=== PATIENT | male | born 1940 | race Caucasian/White ===

== ENCOUNTER 2017-09-04 11:34 | Emergency (ER) | payer MEDICARE, OTHER ==
[2017-09-04 11:51] VITALS: BP 147/73
[2017-09-04] MEDS ORDERED: Ibuprofen 600 MG Tab PO ONE (12:13)
--- NOTE | 2017-09-04 12:22 | EDM.PDOC ---
ED HPI GENERAL MEDICAL PROBLEM - General Chief Complaint: Trauma Stated Complaint: HEAD INJURY Time Seen by Provider: 09/04/17 11:47 Source of Information: Reports: Patient, Family () History Limitations: Reports: No Limitations - History of Present Illness INITIAL COMMENTS - FREE TEXT/NARRATIVE: The patient states that he was struck by one of his callus approximately 3 times around 19:00 last night, in a pen in his barn. He states that the cow was calving. He states that he was shoved up against a wall, then fell to the ground. He struck the back of his head, but denies loss of consciousness. He had epistaxis last night. The patient was seen at the [facility] this morning, complaining of bilateral anterior chest pain and left lateral thigh pain. He is also noted to have facial abrasions, and several ecchymoses and abrasions. A portable chest radiograph was done, which was normal, however, the patient was sent here for further evaluation. The patient has a presumptive diagnosis of Parkinson disease and a prior hemorrhagic stroke. No new neurologic abnormalities. The patient states that he took some Tylenol this morning, but no other pain medications. The patient's PCP is Venecia Craft. Right Chest Pain Score (Numeric/FACES): 10 - Related Data Allergies Allergy/AdvReac Type Severity Reaction Status Date / Time bupropion Allergy UNKNOWN Verified 01/30/16 13:49 ciprofloxacin [From Cipro] Allergy Stomach Verified 01/30/16 13:49 Upset Home Meds: Home Meds Omeprazole 20 mg PO BRK 10/17/13 [History] Potassium Chloride 20 meq PO DAILY 10/17/13 [History] Rosuvastatin [Crestor] 20 mg PO BEDTIME 10/17/13 [History] Levothyroxine [Synthroid] 50 mcg PO ACBRK 06/09/14 [History] Nitroglycerin [IJP: Nitroglycerin] 1 tab SL ASDIRECTED PRN 01/22/16 [History] Carbidopa/Levodopa [Carbidopa-Levodopa 10-100] 1 tab PO TID 11/10/16 [History] Cholecalciferol (Vitamin D3) [Vitamin D3] 5,000 units PO MOWEFR 11/10/16 [ History] Lisinopril 20 mg PO BEDTIME 11/10/16 [History] Multivitamin [Multivitamins] 1 tab PO DAILY 11/10/16 [History] Venlafaxine HCl [Venlafaxine HCl ER] 150 mg PO DAILY 11/10/16 [History] Acetaminophen [Tylenol] 325 mg PO Q4H PRN 09/04/17 [History] Acetaminophen [Tylenol] 500 mg PO Q4H PRN 09/04/17 [History] Betamethasone Valerate [Valisone 0.1% Crm] 1 applic PO ASDIRECTED PRN 09/04/17 [ History] Carbidopa/Levodopa [Sinemet CR 50-200] 1 tab PO DAILY 09/04/17 [History] Polyethylene Glycol 3350 [MiraLAX] 17 gram PO BEDTIME 09/04/17 [History] Past Medical History HEENT History: Reports: Glaucoma, Retinal Detachment Cardiovascular History: Reports: CAD, High Cholesterol, Hypertension Gastrointestinal History: Reports: GERD, Hiatal Hernia, Other (See Below) ( Schatzki ring) Genitourinary History: Reports: Renal Calculus Musculoskeletal History: Reports: Arthritis, Back Pain, Chronic Neurological History: Reports: CVA (Hemorrhagic), Parkinson's (Presumptive diagnosis, not confirmed) Psychiatric History: Reports: Anxiety, Depression Endocrine/Metabolic History: Reports: Hypothyroidism Oncologic (Cancer) History: Reports: Prostate Dermatologic History: Reports: Psoriasis - Past Surgical History HEENT Surgical History: Reports: Adenoidectomy, Detached Retina, Tonsillectomy Cardiovascular Surgical History: Reports: Coronary Artery Stent (x 1) GI Surgical History: Reports: EGD Male Surgical History: Reports: Prostatectomy Musculoskeletal Surgical History: Reports: Carpal Tunnel (bilateral), Other ( See Below) (Right tibia monica) Social & Family History - Tobacco Use Smoking Status *Q: Former Smoker Years of Tobacco use: 10 Month/Year Tobacco Last Used: Quit around 1977 Second Hand Smoke Exposure: No - Caffeine Use Caffeine Use: Reports: Coffee - Alcohol Use Alcohol Use History: Yes Days Per Week of Alcohol Use: 0 Number of Drinks Per Day: 0 Total Drinks Per Week: 0 Alcohol Use Frequency: Socially - Recreational Drug Use Recreational Drug Use: No - Living Situation & Occupation Living situation: Reports: , with Spouse Occupation: Employed ([employer]) Review of Systems - Review of Systems Review Of Systems: ROS reveals no pertinent complaints other than HPI. ED EXAM, GENERAL - Physical Exam Exam: See Below Exam Limited By: No Limitations General Appearance: Alert, WD/WN, No Apparent Distress Eye Exam: Bilateral Eye: Normal Inspection Ears: Normal External Exam, Hearing Grossly Normal Nose: Normal Mucosa, No Blood, Nasal Swelling, Other (No septal hematoma. Whitish discoloration at the anterior aspect of both nostrils, on the septum.) Throat/Mouth: Normal Inspection, Normal Lips, Normal Voice, No Airway Compromise Head: Normocephalic, Other (Numerous abrasions to the face. Small bump noted to the right occiput.) Neck: Normal Inspection, Full Range of Motion Respiratory/Chest: No Respiratory Distress, Lungs Clear, Normal Breath Sounds, No Accessory Muscle Use, Other (Tenderness primarily to the right anterior chest. No visible abnormality, such as swelling, erythema, ecchymosis, or abrasion. No rub on auscultation.). No: Decreased Breath Sounds, Crackles, Rhonchi, Wheezing, Pleural Rub, Splinting, Prolonged Expiration Cardiovascular: Normal Peripheral Pulses, Regular Rate, Rhythm, No Edema, No Gallop, No JVD, No Murmur, No Rub Peripheral Pulses: 4+: Radial (L), Radial (R) GI/Abdominal: Normal Bowel Sounds, Soft, Non-Tender, No Organomegaly, No Distention, No Abnormal Bruit, No Mass (Male) Exam: Deferred Rectal (Males) Exam: Deferred Back Exam: Normal Inspection, Full Range of Motion, NT Extremities: Normal Inspection, Normal Range of Motion, No Pedal Edema, Normal Capillary Refill, Other (Ecchymosis noted to the superior aspect of the right scapula/posterior right shoulder. Linear abrasion to the lateral aspect of the distal left thigh, with associated ecchymosis. Abrasion noted to the anterior right knee and anterior left leg.) Neurological: Alert, Oriented, Normal Cognition, No Motor/Sensory Deficits, Other (Masked facied, c/w Parkinson disease. No focal neurologic deficits.) Psychiatric: Normal Affect Skin Exam: Warm, Dry, Intact, Normal Color, No Rash Course - Vital Signs Last Recorded V/S: Last Vital Signs Temp 37.3 C 09/04/17 11:49 Pulse 74 09/04/17 11:49 Resp 20 09/04/17 11:49 BP 147/73 H 09/04/17 11:49 Pulse Ox 98 09/04/17 11:49 - Orders/Labs/Meds Meds: Medications Discontinued Medications Generic Name Dose Route Start Last Admin Trade Name Ambrose PRN Reason Stop Dose Admin Ibuprofen 600 mg 09/04/17 12:13 09/04/17 12:24 Motrin PO 09/04/17 12:14 600 mg ONETIME ONE Administration - Re-Assessments/Exams Free Text/Narrative Re-Assessment/Exam: 09/04/17 12:12 Portable chest radiograph obtained at the [facility] this morning appears to be grossly normal. Cardiac silhouette is within normal limits. No pulmonary vascular congestion. No pleural effusions. No focal infiltrate. No pneumothorax. Formal read per the Radiologist pending. 09/04/17 12:13 Discussion was held with the patient and his regarding a CT scan of the head. I do not find that a CT scan of the head is indicated at this time, for a while the patient struck the back of his head last night, there was no loss of consciousness, he does not complain of headache or visual changes, and there are no focal neurologic deficits. The patient will be given ibuprofen. I believe he can safely be discharged home. Departure - Departure Time of Disposition: 12:13 Disposition: Home, Self-Care 01 Condition: Fair Clinical Impression: Multiple abrasions, Multiple contusions - Discharge Information Referrals: Venecia Craft PA-C [Primary Care Provider] - Eze Clark MD [Ordering Only Provider] - Forms: ED Department Discharge Additional Instructions: You were seen in the emergency room after being struck by a cow last night. The chest x-ray obtained this morning at the [facility] was reviewed. No broken bones, popped lungs, or fluid in the chest was seen. On evaluation, you had multiple abrasions and contusions, but no apparent broken bones. Take [id number] ibuprofen, 2-3 tablets (400-600 mg) every 8 hours, with food, as needed for discomfort. Stay active. On examination of your nose, you have some white discoloration at the front of your nostrils. Follow-up with the Ear, Nose, and Throat Dr. Eze Clark, at the next available appointment, for further evaluation. If any other problems, please do not hesitate to return to the ER.
== END 2017-09-04 13:00 | disposition home or self-care (01) ==
LOC: JD.ED 11:34
DX: S40.011A Contusion of right shoulder, initial encounter (principal); S70.12XA Contusion of left thigh, initial encounter; S80.211A Abrasion, right knee, initial encounter; S80.812A Abrasion, left lower leg, initial encounter; S00.81XA Abrasion of other part of head, initial encounter; I25.10 Atherosclerotic heart disease of native coronary artery without angina pectoris; E78.00 Pure hypercholesterolemia, unspecified; E03.9 Hypothyroidism, unspecified; I10 Essential (primary) hypertension; F41.9 Anxiety disorder, unspecified; F32.9 Major depressive disorder, single episode, unspecified; Z87.442 Personal history of urinary calculi; Z86.73 Personal history of transient ischemic attack (TIA), and cerebral infarction without residual deficits; Z90.49 Acquired absence of other specified parts of digestive tract; Z98.890 Other specified postprocedural states; Z88.1 Allergy status to other antibiotic agents; Z88.8 Allergy status to other drugs, medicaments and biological substances; Z79.899 Other long term (current) drug therapy; W22.01XA Walked into wall, initial encounter; Z87.891 Personal history of nicotine dependence
CPT/HCPCS: 99283; A9270

== ENCOUNTER 2019-02-16 10:58 | Inpatient (IN) | payer MEDICARE, OTHER ==
[2019-02-16] MEDS ORDERED: EPINEPHrine/Lidocaine/Tetracai 3 ML ML TOP ONE (11:50)
[2019-02-16] MEDS ORDERED: Lidocaine 1% with EPINEPHrine 1:100,000 20 ML MDV INJECT ONE (11:51)
--- NOTE | 2019-02-16 11:57 | EDM.PDOC ---
<Anthony Harman - Last Filed: 02/16/19 11:50> ED HPI GENERAL MEDICAL PROBLEM - General Chief Complaint: General Stated Complaint: RIGHT EYE INJURY Time Seen by Provider: 02/16/19 11:11 Source of Information: Reports: Patient, Old Records History Limitations: Reports: No Limitations - History of Present Illness INITIAL COMMENTS - FREE TEXT/NARRATIVE: Pt presents to ED today from [facility] with complaint of falling and a facial laceration. Pt states that he has had multiple falls over the last 4-6 weeks, and has fallen down at least 4 times today, with one fall resulting in a laceration over his left eye. Pt states that he feels dizzy before he falls down , and is able to catch himself with his hands usually. He presented to the [facility] this morning for repair of his laceration, when he became rigid and unresponsive to stimuli for about 15-30 seconds. Pt does not recall this episode. Pt is having no chest pain or shortness of breath. No headache. No other associated symptoms. Pt does have hx of CVA in 2016, from which he states he has no residual deficits. Pt states that he has problems with hypotensive episodes for which he was put on medication. Onset: Today Location: Reports: Face Front/Back Body Image: 1 - Laceration - Related Data Allergies Allergy/AdvReac Type Severity Reaction Status Date / Time bupropion Allergy UNKNOWN Verified 01/30/16 13:49 ciprofloxacin [From Cipro] Allergy Stomach Verified 01/30/16 13:49 Upset Home Meds: Home Meds Omeprazole 20 mg PO BRK 10/17/13 [History] Potassium Chloride 20 meq PO DAILY 10/17/13 [History] Rosuvastatin [Crestor] 20 mg PO BEDTIME 10/17/13 [History] Levothyroxine [Synthroid] 50 mcg PO ACBRK 06/09/14 [History] Nitroglycerin [IJP: Nitroglycerin] 1 tab SL ASDIRECTED PRN 01/22/16 [History] Cholecalciferol (Vitamin D3) [Vitamin D3] 5,000 units PO MOWEFR 11/10/16 [ History] Lisinopril 40 mg PO BEDTIME 11/10/16 [History] Multivitamin [Multivitamins] 1 tab PO DAILY 11/10/16 [History] Venlafaxine HCl [Venlafaxine HCl ER] 150 mg PO DAILY 11/10/16 [History] Acetaminophen [Tylenol] 500 mg PO Q4H PRN 09/04/17 [History] Carbidopa/Levodopa [Sinemet CR 50-200] 1 tab PO DAILY 09/04/17 [History] Polyethylene Glycol 3350 [MiraLAX] 17 gram PO BEDTIME 09/04/17 [History] Aspirin 81 mg PO DAILY 02/16/19 [History] Famotidine 20 mg PO DAILY 02/16/19 [History] Midodrine 5 mg PO TID 02/16/19 [History] Sennosides [Senna] 8.6 mg PO BID 02/16/19 [History] Past Medical History HEENT History: Reports: Glaucoma, Retinal Detachment Cardiovascular History: Reports: CAD, High Cholesterol, Hypertension Other Cardiovascular History: chest pain Respiratory History: Reports: Other (See Below) Other Respiratory History: upper respiratory infection Gastrointestinal History: Reports: GERD, Hiatal Hernia, Other (See Below) Other Gastrointestinal History: schatzcki's ring Genitourinary History: Reports: Renal Calculus Musculoskeletal History: Reports: Arthritis, Back Pain, Chronic Other Musculoskeletal History: shoulder pain Neurological History: Reports: CVA, Parkinson's Other Neuro History: R hand paresthesia Psychiatric History: Reports: Anxiety, Depression Endocrine/Metabolic History: Reports: Hypothyroidism Hematologic History: Reports: Other (See Below) Other Hematologic History: hyperkalemia Immunologic History: Reports: None Oncologic (Cancer) History: Reports: Prostate Dermatologic History: Reports: Psoriasis - Infectious Disease History Infectious Disease History: Reports: None - Past Surgical History Head Surgeries/Procedures: Reports: None HEENT Surgical History: Reports: Adenoidectomy, Detached Retina, Tonsillectomy Cardiovascular Surgical History: Reports: Coronary Artery Stent GI Surgical History: Reports: EGD Male Surgical History: Reports: Prostatectomy Musculoskeletal Surgical History: Reports: Carpal Tunnel, Other (See Below) Social & Family History - Tobacco Use Smoking Status *Q: Former Smoker Used Tobacco, but Quit: Yes Month/Year Tobacco Last Used: 1975 - Caffeine Use Caffeine Use: Reports: Soda - Recreational Drug Use Recreational Drug Use: No - Living Situation & Occupation Living situation: Reports: , with Spouse Occupation: Employed ([employer]) ED ROS GENERAL - Review of Systems Review Of Systems: ROS reveals no pertinent complaints other than HPI. ED EXAM, GENERAL - Physical Exam Exam: See Below Exam Limited By: No Limitations General Appearance: Alert, No Apparent Distress Eye Exam: Bilateral Eye: EOMI, Normal Inspection Ears: Normal External Exam, Hearing Grossly Normal Nose: Normal Inspection, Normal Mucosa, No Blood Throat/Mouth: Normal Inspection Head: Normocephalic, Facial Swelling, Other (3cm laceration superior to left eye ) Neck: Normal Inspection, Supple, Non-Tender Respiratory/Chest: No Respiratory Distress, Lungs Clear, Normal Breath Sounds, No Accessory Muscle Use. No: Crackles, Rales, Rhonchi, Wheezing Cardiovascular: Regular Rate, Rhythm, No Edema, No JVD, No Rub, Systolic Murmur GI/Abdominal: Normal Bowel Sounds, Soft, Non-Tender, No Organomegaly Extremities: Normal Inspection Neurological: Alert, Oriented, Normal Cognition, No Motor/Sensory Deficits Psychiatric: Normal Affect, Normal Mood Skin Exam: Warm, Dry, Intact, Normal Color, No Rash Course - Vital Signs Last Recorded V/S: Last Vital Signs Temp 98.7 F 02/16/19 11:09 Pulse 70 02/16/19 11:09 Resp 16 02/16/19 11:09 BP 155/85 H 02/16/19 11:09 Pulse Ox 94 L 02/16/19 11:09 - Orders/Labs/Meds Orders: Active Orders 24 hr Category Date Time Status Cardiac Monitoring [RC] . DIRECTED Care 02/16/19 11:48 Active EKG Documentation Completion [RC] STAT Care 02/16/19 11:50 Active Peripheral IV Care [RC] . DIRECTED Care 02/16/19 11:49 Active Brain wo Cont [MR] Stat Exams 02/16/19 14:16 Ordered Head wo Cont [CT] Stat Exams 02/16/19 11:50 Taken Sodium Chloride 0.9% [Normal Saline] 1,000 ml Med 02/16/19 12:00 Active IV ASDIRECTED Sodium Chloride 0.9% [Normal Saline] 500 ml Med 02/16/19 14:27 Active IV .BOLUS Sodium Chloride 0.9% [Saline Flush] Med 02/16/19 11:48 Active 10 ml FLUSH ASDIRECTED PRN Peripheral IV Insertion Adult [OM.PC] Stat Oth 02/16/19 11:48 Ordered Medication Orders Sodium Chloride (Normal Saline) 1,000 mls @ 125 mls/hr IV ASDIRECTED THOMPSON Last Admin: 02/16/19 12:14 Dose: 125 mls/hr Sodium Chloride (Normal Saline) 500 mls @ 1,000 mls/hr IV .BOLUS ONE Stop: 02/16/19 14:56 Sodium Chloride (Saline Flush) 10 ml FLUSH ASDIRECTED PRN PRN Reason: Keep Vein Open Last Admin: 02/16/19 13:42 Dose: 10 ml Admin: 02/16/19 12:15 Dose: 10 ml Labs: Laboratory Tests 02/16/19 02/16/19 02/16/19 Range/Units 12:10 12:10 14:10 WBC 12.66 H (4.23-9.07) K/mm3 RBC 4.98 (4.63-6.08) M/mm3 Hgb 15.5 (13.7-17.5) gm/L Hct 45.9 (40.1-51.0) % MCV 92.2 (79.0-92.2) fl MCH 31.1 (25.7-32.2) pg MCHC 33.8 (32.2-35.5) g/dl RDW Std Deviation 41.3 (35.1-43.9) fL Plt Count 229 (163-337) K/mm3 MPV 10.9 (9.4-12.3) fl Neut % (Auto) 81.3 H (34.0-67.9) % Lymph % (Auto) 7.4 L (21.8-53.1) % [place] % (Auto) 10.7 (5.3-12.2) % Eos % (Auto) 0.2 L (0.8-7.0) Baso % (Auto) 0.2 (0.1-1.2) % Neut # (Auto) 10.28 H (1.78-5.38) K/mm3 Lymph # (Auto) 0.94 L (1.32-3.57) K/mm3 [place] # (Auto) 1.36 H (0.30-0.82) K/mm3 Eos # (Auto) 0.03 L (0.04-0.54) K/mm3 Baso # (Auto) 0.03 (0.01-0.08) K/mm3 Manual Slide Review Abnormal smear Sodium 141 (136-145) mEq/L Potassium 4.5 (3.5-5.1) mEq/L Chloride 106 (98-107) mEq/L Carbon Dioxide 27 (21-32) mEq/L Anion Gap 12.5 (5-15) BUN 20 H (7-18) mg/dL Creatinine 1.2 (0.7-1.3) mg/dL Est Cr Clr Drug Dosing 53.23 mL/min Estimated GFR (MDRD) 59 (>60) mL/min BUN/Creatinine Ratio 16.7 (14-18) Glucose 94 (83-115) mg/dL Calcium 9.1 (8.5-10.1) mg/dL Total Bilirubin 0.5 (0.2-1.0) mg/dL AST 28 (15-37) U/L ALT 20 (16-63) U/L Alkaline Phosphatase 99 (46-116) U/L Troponin I < 0.017 (0.00-0.056) ng/mL Total Protein 6.5 (6.4-8.2) g/dl Albumin 3.4 (3.4-5.0) g/dl Globulin 3.1 gm/dL Albumin/Globulin Ratio 1.1 (1-2) Urine Color Yellow (Yellow) Urine Appearance Clear (Clear) Urine pH 5.5 (5.0-8.0) Ur Specific Supply 1.025 (1.005-1.030) Urine Protein Trace H (Negative) Urine Glucose (UA) Negative (Negative) Urine Ketones 2+ H (Negative) Urine Occult Blood Negative (Negative) Urine Nitrite Negative (Negative) Urine Bilirubin 1+ H (Negative) Urine Urobilinogen 0.2 (0.2-1.0) Ur Leukocyte Esterase Negative (Negative) Urine RBC 0-5 (0-5) /hpf Urine WBC 0-5 (0-5) /hpf Ur Epithelial Cells 0-5 (0-5) /hpf Calcium Oxalate Crystal Few H (NONE) Urine Bacteria Few (FEW) /hpf Urine Mucus Not seen (FEW) /hpf Meds: Medications Generic Name Dose Route Start Last Admin Trade Name Freq PRN Reason Stop Dose Admin Sodium Chloride 1,000 mls @ 125 mls/hr 02/16/19 12:00 02/16/19 12:14 Normal Saline IV 125 mls/hr ASDIRECTED THOMPSON Administration Sodium Chloride 500 mls @ 1,000 mls/hr 02/16/19 14:27 Normal Saline IV 02/16/19 14:56 .BOLUS ONE Sodium Chloride 10 ml 02/16/19 11:48 02/16/19 13:42 Saline Flush FLUSH 10 ml ASDIRECTED PRN Administration Keep Vein Open Discontinued Medications Generic Name Dose Route Start Last Admin Trade Name Treyq PRN Reason Stop Dose Admin Lidocaine/Epinephrine 20 ml 02/16/19 11:51 02/16/19 13:41 Xylocaine 1% With Epinephrine 1:100,000 INJECT 02/16/19 11:52 20 ml ONETIME ONE Administration Lidocaine/Epinephrine Confirm 02/16/19 12:42 02/16/19 13:09 Xylocaine 1% With Epinephrine 1:100,000 Administered 02/16/19 12:43 Not Given Dose 20 ml .ROUTE .STK-MED ONE Lidocaine/Tetracaine 3 ml 02/16/19 11:50 02/16/19 12:59 Let Soln TOP 02/16/19 11:51 3 ml ONETIME ONE Administration Midodrine 5 mg 02/16/19 14:27 Midodrine PO 02/16/19 14:28 ONETIME ONE - Re-Assessments/Exams Free Text/Narrative Re-Assessment/Exam: 02/16/19 12:03 Will order labs, EKG, CT of head Departure - Departure Disposition: Refer to Observation Clinical Impression: Orthostatic hypotension, Rigidity Fall Qualifiers: Encounter type: initial encounter Qualified Code(s): W19.XXXA - Unspecified fall, initial encounter Laceration of eyebrow, left Qualifiers: Encounter type: initial encounter Qualified Code(s): S01.112A - Laceration without foreign body of left eyelid and periocular area, initial encounter - Discharge Information Referrals: Venecia Craft PA-C [Primary Care Provider] - Forms: ED Department Discharge - My Orders Last 24 Hours: My Active Orders 02/16/19 11:48 Cardiac Monitoring [RC] . DIRECTED Sodium Chloride 0.9% [Saline Flush] 10 ml FLUSH ASDIRECTED PRN Peripheral IV Insertion Adult [OM.PC] Stat 02/16/19 11:49 Peripheral IV Care [RC] . DIRECTED 02/16/19 11:50 EKG Documentation Completion [RC] STAT Head wo Cont [CT] Stat 02/16/19 12:00 Sodium Chloride 0.9% [Normal Saline] 1,000 ml IV ASDIRECTED 02/16/19 14:16 Brain wo Cont [MR] Stat 02/16/19 14:27 Sodium Chloride 0.9% [Normal Saline] 500 ml IV .BOLUS - Assessment/Plan Last 24 Hours: My Active Orders 02/16/19 11:48 Cardiac Monitoring [RC] . DIRECTED Sodium Chloride 0.9% [Saline Flush] 10 ml FLUSH ASDIRECTED PRN Peripheral IV Insertion Adult [OM.PC] Stat 02/16/19 11:49 Peripheral IV Care [RC] . DIRECTED 02/16/19 11:50 EKG Documentation Completion [RC] STAT Head wo Cont [CT] Stat 02/16/19 12:00 Sodium Chloride 0.9% [Normal Saline] 1,000 ml IV ASDIRECTED 02/16/19 14:16 Brain wo Cont [MR] Stat 02/16/19 14:27 Sodium Chloride 0.9% [Normal Saline] 500 ml IV .BOLUS <Rupesh Manning - Last Filed: 02/16/19 14:50> ED HPI GENERAL MEDICAL PROBLEM - History of Present Illness Quality: Reports: Sharp Severity: Mild Improves with: Reports: None Worsens with: Reports: None Associated Symptoms: Denies: Chest Pain, Cough, Fever/Chills, Headaches, Nausea/ Vomiting, Shortness of Breath ED GENERAL MEDICAL PROCEDURES - Laceration/Wound Repair Left Face Lac/wound length in cm: 2.5 Appearance: Subcutaneous, Stellate Anesthetic Type: Topical (Let) Skin Prep: Saline Exploration/Debridement/Repair: Wound Explored, In a Bloodless Field, Explored to Base Closed with: Sutures Suture Size: 4-0 # of Sutures: 7 Suture Type: Nylon, Interrupted, Simple Tetanus Status Addressed: Yes Complications: No EKG INTERPRETATION EKG Date: 02/16/19 Time: 12:15 Rhythm: NSR Rate (Beats/Min): 71 [place]: Normal P-Wave: Present QRS: Normal ST-T: Normal QT: Normal Course - Re-Assessments/Exams Free Text/Narrative Re-Assessment/Exam: 02/16/19 14:39 I examined the patient myself and I agree with Anthony's assessment and plan. I have ordered an IV NS 125mL/hr, labs, UA and a CT of his head. The CT of his head shows encephalomalacia within the right temporal and occipital lobes with central coarse calcification. Exvacuo dilatation of the temporal horn and occipital horn of the right lateral ventricle. There is an expected degree of age-related atrophy and chronic white matter ischemic changes. No acute intra- axial or extra-axial hemorrhage appreciated. His WBC was slightly elevated at 12.66. His troponin is normal. His CMP looks good. His UA shows no UTI. I closed up the laceration. 02/16/19 14:47 His EKG shows a NSR with no acute changes. I had my nurse do orthostatic vitals and he was positive. I ordered more fluid and I ordered a dose of midorine which he is supposed to get at 2. I feel he needs to be admitted. I talked with Dr Fernández and he agreed to the admission. I called about getting an MRI. They will try to work him in but they were not sure if it will happen. Departure - Departure Time of Disposition: 15:00 Condition: Good
[2019-02-16] MEDS ORDERED: Sodium Chloride 0.9% 1,000 ML IV SCH (12:00)
[2019-02-16] MEDS: Sodium Chloride 0.9% 10 ML Syringe FLUSH PRN ×2 (12:15→13:42)
[2019-02-16] MEDS ORDERED: Lidocaine 1% with EPINEPHrine 1:100,000 20 ML MDV ONE (12:42)
[2019-02-16] MEDS ORDERED: Midodrine 5 MG Tab PO ONE (14:27)
[2019-02-16] MEDS ORDERED: Sodium Chloride 0.9% 500 ML IV ONE (14:27)
[2019-02-16] MEDS ORDERED: Ondansetron 4 MG/2 ML SDV IV PRN (19:50)
[2019-02-16] MEDS ORDERED: Acetaminophen 325 MG Tab PO PRN (19:50)
--- NOTE | 2019-02-16 20:04 | PCM.HP.2 ---
H&P History of Present Illness - General Date of Service: 02/16/19 Admit Problem/Dx: Admission Diagnosis/Problem Admission Diagnosis/Problem Orthostatic hypotension - History of Present Illness Initial Comments - Free Text/Narative: 78-year-old male, here with his son, with history of Parkinson's disease and orthostatic hypotension presented to the [facility] after his fourth fall this morning. On the fourth fall he fell hitting the ground and his glasses causing a laceration over his left eye. Patient was referred to the emergency room secondary to his multiple falls. Over the last 6-8 weeks patient has been experiencing increasing falls. Approximately 2-3 weeks ago he fell hitting the back of his head and developing a laceration. Patient was found to be orthostatic and emergency room physician at the agreement of his urologist md, Dr. House, started him on Midrin 5 mg. Patient was seen by Dr. House proximally 2 weeks ago. Patient has not had any falls until this morning. Patient does have difficulty with exact timing of his history. Today when he went to the clinic he had an episode lasting approximately 30 seconds where he became rigid. He was awake but glassy eyed. He has no recollection of the event. Witnesses were his provider as well as multiple nurses. Patient did not have any significant seizure-like activity but did have some tremor. Patient does have Parkinson's disease and is on Sinemet. His son thinks that this is fairly common to some of his episodes. Patient has not been seen by neurology. 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 In the emergency room MRI and CT of his head were performed. No acute findings. Old findings consistent with previous CVA. Onset of Symptoms: Reports: Today - Related Data Allergies/Adverse Reactions: Allergies Allergy/AdvReac Type Severity Reaction Status Date / Time bupropion Allergy UNKNOWN Verified 01/30/16 13:49 ciprofloxacin [From Cipro] Allergy Stomach Verified 01/30/16 13:49 Upset Home Medications: Home Meds Omeprazole 20 mg PO BRK 10/17/13 [History] Potassium Chloride 20 meq PO DAILY 10/17/13 [History] Rosuvastatin [Crestor] 20 mg PO BEDTIME 10/17/13 [History] Levothyroxine [Synthroid] 50 mcg PO ACBRK 06/09/14 [History] Nitroglycerin [IJP: Nitroglycerin] 1 tab SL ASDIRECTED PRN 01/22/16 [History] Cholecalciferol (Vitamin D3) [Vitamin D3] 5,000 units PO MOWEFR 11/10/16 [ History] Lisinopril 20 mg PO DAILY 11/10/16 [History] Multivitamin [Multivitamins] 1 tab PO DAILY 11/10/16 [History] Venlafaxine HCl [Venlafaxine HCl ER] 150 mg PO DAILY 11/10/16 [History] Acetaminophen [Tylenol] 500 mg PO Q6HR PRN 09/04/17 [History] Carbidopa/Levodopa [Sinemet CR 50-200] 1 tab PO DAILY 09/04/17 [History] Polyethylene Glycol 3350 [MiraLAX] 17 gram PO BEDTIME 09/04/17 [History] Aspirin 81 mg PO DAILY 02/16/19 [History] Midodrine 5 mg PO TID 02/16/19 [History] Sennosides [Senna] 8.6 mg PO BID 02/16/19 [History] Past Medical History HEENT History: Reports: Glaucoma, Retinal Detachment Cardiovascular History: Reports: CAD, High Cholesterol, Hypertension Other Cardiovascular History: chest pain Respiratory History: Reports: Other (See Below) Other Respiratory History: upper respiratory infection Gastrointestinal History: Reports: GERD, Hiatal Hernia, Other (See Below) Other Gastrointestinal History: schatzcki's ring Genitourinary History: Reports: Renal Calculus Musculoskeletal History: Reports: Arthritis, Back Pain, Chronic Other Musculoskeletal History: shoulder pain Neurological History: Reports: CVA, Parkinson's Other Neuro History: R hand paresthesia Psychiatric History: Reports: Anxiety, Depression Endocrine/Metabolic History: Reports: Hypothyroidism Hematologic History: Reports: Other (See Below) Other Hematologic History: hyperkalemia Immunologic History: Reports: None Oncologic (Cancer) History: Reports: Prostate Dermatologic History: Reports: Psoriasis - Infectious Disease History Infectious Disease History: Reports: Chicken Pox, Measles, Mumps - Past Surgical History Head Surgeries/Procedures: Reports: None HEENT Surgical History: Reports: Adenoidectomy, Detached Retina, Tonsillectomy Cardiovascular Surgical History: Reports: Coronary Artery Stent GI Surgical History: Reports: EGD Male Surgical History: Reports: Prostatectomy Musculoskeletal Surgical History: Reports: Carpal Tunnel, Other (See Below) Social & Family History - Family History Oncologic: Reports: Bladder, Pancreatic - Tobacco Use Smoking Status *Q: Former Smoker Years of Tobacco use: 12 Used Tobacco, but Quit: Yes Month/Year Tobacco Last Used: 1975 Second Hand Smoke Exposure: No - Caffeine Use Caffeine Use: Reports: Soda - Recreational Drug Use Recreational Drug Use: No - Living Situation & Occupation Living situation: Reports: , with Spouse Occupation: Employed ([employer]) H&P Review of Systems - Review of Systems: Review Of Systems: ROS reveals no pertinent complaints other than HPI. Exam - Exam Exam: See Below - Vital Signs Vital Signs: Last Vital Signs Temp 98.8 F 02/16/19 17:15 Pulse 73 02/16/19 17:15 Resp 14 02/16/19 17:15 BP 140/80 02/16/19 17:15 Pulse Ox 94 L 02/16/19 17:15 Weight: 169 lb 1.6 oz - Exam Quality Assessment: No: Supplemental Oxygen General: Alert, Oriented, 4 HEENT: Conjunctiva Clear, Hearing Intact, Mucosa Moist & [place], Pupils Equal, Pupils Reactive, Other (bandage over left eye) Neck: Supple, Trachea Midline, 2 Lungs: Clear to Auscultation, Normal Respiratory Effort Cardiovascular: Regular Rate, Regular Rhythm GI/Abdominal Exam: Normal Bowel Sounds, Soft, Non-Tender, No Organomegaly, No Distention Extremities: Normal Inspection, Normal Range of Motion, Non-Tender Neuro Extensive - Mental Status: Alert, Oriented x3, Normal Mood/Affect, Normal Cognition, Memory Intact (but has difficulty with timing of events) Neuro Extensive - Motor, Sensory, Reflexes: CN II-XII Intact, Abnormal Gait, Abnormal Finger to Nose (this slow consistent with Parkinson's), Tremor ( findings mild tremor), Other (bradykinesia). No: Pronator Drift (R), Pronator Drift (L) Psychiatric: Alert, Normal Affect, Normal Mood - Patient Data Lab Results Last 24 hrs: Laboratory Results - last 24 hr 02/16/19 02/16/19 02/16/19 Range/Units 12:10 12:10 14:10 WBC 12.66 H (4.23-9.07) K/mm3 RBC 4.98 (4.63-6.08) M/mm3 Hgb 15.5 (13.7-17.5) gm/L Hct 45.9 (40.1-51.0) % MCV 92.2 (79.0-92.2) fl MCH 31.1 (25.7-32.2) pg MCHC 33.8 (32.2-35.5) g/dl RDW Std Deviation 41.3 (35.1-43.9) fL Plt Count 229 (163-337) K/mm3 MPV 10.9 (9.4-12.3) fl Neut % (Auto) 81.3 H (34.0-67.9) % Lymph % (Auto) 7.4 L (21.8-53.1) % [place] % (Auto) 10.7 (5.3-12.2) % Eos % (Auto) 0.2 L (0.8-7.0) Baso % (Auto) 0.2 (0.1-1.2) % Neut # (Auto) 10.28 H (1.78-5.38) K/mm3 Lymph # (Auto) 0.94 L (1.32-3.57) K/mm3 [place] # (Auto) 1.36 H (0.30-0.82) K/mm3 Eos # (Auto) 0.03 L (0.04-0.54) K/mm3 Baso # (Auto) 0.03 (0.01-0.08) K/mm3 Manual Slide Review Abnormal smear Sodium 141 (136-145) mEq/L Potassium 4.5 (3.5-5.1) mEq/L Chloride 106 (98-107) mEq/L Carbon Dioxide 27 (21-32) mEq/L Anion Gap 12.5 (5-15) BUN 20 H (7-18) mg/dL Creatinine 1.2 (0.7-1.3) mg/dL Est Cr Clr Drug Dosing 53.23 mL/min Estimated GFR (MDRD) 59 (>60) mL/min BUN/Creatinine Ratio 16.7 (14-18) Glucose 94 (83-115) mg/dL Calcium 9.1 (8.5-10.1) mg/dL Total Bilirubin 0.5 (0.2-1.0) mg/dL AST 28 (15-37) U/L ALT 20 (16-63) U/L Alkaline Phosphatase 99 (46-116) U/L Troponin I < 0.017 (0.00-0.056) ng/mL Total Protein 6.5 (6.4-8.2) g/dl Albumin 3.4 (3.4-5.0) g/dl Globulin 3.1 gm/dL Albumin/Globulin Ratio 1.1 (1-2) Urine Color Yellow (Yellow) Urine Appearance Clear (Clear) Urine pH 5.5 (5.0-8.0) Ur Specific [place] 1.025 (1.005-1.030) Urine Protein Trace H (Negative) Urine Glucose (UA) Negative (Negative) Urine Ketones 2+ H (Negative) Urine Occult Blood Negative (Negative) Urine Nitrite Negative (Negative) Urine Bilirubin 1+ H (Negative) Urine Urobilinogen 0.2 (0.2-1.0) Ur Leukocyte Esterase Negative (Negative) Urine RBC 0-5 (0-5) /hpf Urine WBC 0-5 (0-5) /hpf Ur Epithelial Cells 0-5 (0-5) /hpf Calcium Oxalate Crystal Few H (NONE) Urine Bacteria Few (FEW) /hpf Urine Mucus Not seen (FEW) /hpf Result Diagrams: 02/16/19 12:10 02/16/19 12:10 Problem List Initiated/Reviewed/Updated: Yes Orders Last 24hrs: Active Orders 24 hr Category Date Time Status Patient Status [ADT] Routine ADT 02/16/19 16:47 Active Cardiac Monitoring [RC] . DIRECTED Care 02/16/19 11:48 Active EKG Documentation Completion [RC] STAT Care 02/16/19 11:50 Active Oxygen Therapy [RC] PRN Care 02/16/19 19:50 Ordered Peripheral IV Care [RC] . DIRECTED Care 02/16/19 11:49 Active Up With Assistance [RC] ASDIRECTED Care 02/16/19 19:50 Ordered VTE/DVT Education [RC] PER UNIT ROUTINE Care 02/16/19 19:50 Ordered Vital Signs [RC] ASDIRECTED Care 02/16/19 19:50 Ordered OT Evaluation and Treatment [CONS] Routine Cons 02/16/19 19:52 Ordered PT Evaluation and Treatment [CONS] Routine Cons 02/16/19 19:52 Ordered Heart Healthy Diet [DIET] Diet 02/16/19 Dinner Active Brain wo Cont [MR] Stat Exams 02/16/19 14:16 Taken Head wo Cont [CT] Stat Exams 02/16/19 11:50 Taken C-REACTIVE PROTEIN [CHEM] AM Lab 02/17/19 05:11 Ordered C-REACTIVE PROTEIN [CHEM] AM Lab 02/18/19 05:11 Ordered CBC WITH AUTO DIFF [HEME] AM Lab 02/17/19 05:11 Ordered CBC WITH AUTO DIFF [HEME] AM Lab 02/18/19 05:11 Ordered COMPREHENSIVE METABOLIC PN,CMP [CHEM] AM Lab 02/17/19 05:11 Ordered COMPREHENSIVE METABOLIC PN,CMP [CHEM] AM Lab 02/18/19 05:11 Ordered MAGNESIUM [CHEM] AM Lab 02/17/19 05:11 Ordered MAGNESIUM [CHEM] AM Lab 02/18/19 05:11 Ordered Acetaminophen [Tylenol] Med 02/16/19 19:50 Ordered 650 mg PO Q4H PRN Carbidopa/Levodopa Med 02/17/19 09:00 Ordered 1 tab PO DAILY Enoxaparin [Lovenox] Med 02/17/19 09:00 Ordered 40 mg SUBCUT DAILY Levothyroxine [Synthroid] Med 02/17/19 06:00 Ordered 50 mcg PO ACBRK Lisinopril [Prinivil] Med 02/17/19 09:00 Ordered 20 mg PO DAILY Midodrine Med 02/16/19 21:00 Ordered 5 mg PO TID Ondansetron [Zofran] Med 02/16/19 19:50 Ordered 4 mg IV Q4H PRN Potassium Chloride [Potassium Chloride] Med 02/17/19 09:00 Ordered 20 meq PO DAILY Sodium Chloride 0.9% [Normal Saline] 1,000 ml Med 02/16/19 12:00 Active IV ASDIRECTED Sodium Chloride 0.9% [Saline Flush] Med 02/16/19 11:48 Active 10 ml FLUSH ASDIRECTED PRN Venlafaxine HCl [Venlafaxine HCl ER] Med 02/17/19 09:00 Ordered 150 mg PO DAILY Peripheral IV Insertion Adult [OM.PC] Stat Oth 02/16/19 11:48 Ordered Resuscitation Status Routine Resus Stat 02/16/19 18:16 Ordered Medication Orders Sodium Chloride (Normal Saline) 1,000 mls @ 125 mls/hr IV ASDIRECTED [place]OM[place]ON Last Infusion: 02/16/19 16:53 Dose: 125 mls/hr Infusion: 02/16/19 15:19 Dose: 999 mls/hr Admin: 02/16/19 12:14 Dose: 125 mls/hr Sodium Chloride (Saline Flush) 10 ml FLUSH ASDIRECTED PRN PRN Reason: Keep Vein Open Last Admin: 02/16/19 13:42 Dose: 10 ml Admin: 02/16/19 12:15 Dose: 10 ml Assessment/Plan Comment:: Assessment * 78-year-old male with history of Parkinson's disease and orthostatic hypotension admitted for multiple falls and episode of increased tonicity Plan * Observation * EEG in the morning * PT and OT * Discussed care with his urologist md and possibly neurology in the morning * CBC, CMP, C-reactive protein, and magnesium in the morning * Reconcile medication * CODE STATUS: Full code * VTE prophylaxis with Lovenox - Mortality Measure Prognosis:: Good
[2019-02-16] MEDS ORDERED: Lisinopril 20 MG Tab PO SCH (22:00)
[2019-02-16] MEDS: Midodrine 5 MG Tab PO SCH (22:37)
[2019-02-17] MEDS ORDERED: hydrALAZINE 20 MG/ML SDV IVPUSH PRN (01:58)
[2019-02-17] MEDS: Levothyroxine 50 MCG Tab PO SCH (06:07)
[2019-02-17] MEDS: Carbidopa/Levodopa 25-100 MG Tab.ER PO SCH ×2 (07:50→08:36)
[2019-02-17] MEDS: Midodrine 5 MG Tab PO SCH ×4 (07:50→16:56)
[2019-02-17] MEDS: Enoxaparin 40 MG/0.4 ML Syringe SUBCUT SCH ×2 (07:50→08:09)
[2019-02-17] MEDS: Venlafaxine 75 MG Cap.ER PO SCH ×2 (07:50→08:36)
[2019-02-17] MEDS: Potassium Chloride 20 MEQ Tab.ER PO SCH ×2 (07:51→08:36)
--- NOTE | 2019-02-17 11:50 | PCM.PN ---
- General Info Date of Service: 02/17/19 Admission Dx/Problem (Free Text): Admission Diagnosis/Problem Admission Diagnosis/Problem Orthostatic hypotension Subjective Update: patient has no complaints and no significant change from yesterday. Physical therapy has been in to see him and he ambulated well. Denies any dizziness, chest pain, shortness of breath. Patient did have an episode of hypertension with systolic blood pressure of 180 overnight. I spoke with Dr. House his machining manager who recommended stopping the lisinopril and decreasing the midodrine. Also, he suggested not treating asymptomatic hypertension if it is less than a systolic of 200. Functional Status: Reports: Pain Controlled - Review of Systems General: Reports: No Symptoms HEENT: Reports: No Symptoms Pulmonary: Reports: No Symptoms Cardiovascular: Reports: No Symptoms Gastrointestinal: Reports: No Symptoms Genitourinary: Reports: No Symptoms - Patient Data Vitals - Most Recent: Last Vital Signs Temp 98.4 F 02/17/19 10:59 Pulse 68 02/17/19 10:59 Resp 16 02/17/19 07:38 BP 91/55 L 02/17/19 10:52 Pulse Ox 94 L 02/17/19 10:59 Orthostatic Blood Pressure [ 91/55 Standing] Orthostatic Blood Pressure [ 153/78 Sitting] Orthostatic Blood Pressure [ 138/107 Supine] Weight - Most Recent: 166 lb 14.4 oz I&O - Last 24 Hours: Intake & Output 02/16/19 02/17/19 02/17/19 22:59 06:59 14:59 Intake Total 180 550 Output Total 1300 Balance 180 -750 Lab Results Last 24 Hours: Laboratory Results - last 24 hr 02/16/19 02/16/19 02/16/19 Range/Units 12:10 12:10 14:10 WBC 12.66 H (4.23-9.07) K/mm3 RBC 4.98 (4.63-6.08) M/mm3 Hgb 15.5 (13.7-17.5) gm/L Hct 45.9 (40.1-51.0) % MCV 92.2 (79.0-92.2) fl MCH 31.1 (25.7-32.2) pg MCHC 33.8 (32.2-35.5) g/dl RDW Std Deviation 41.3 (35.1-43.9) fL Plt Count 229 (163-337) K/mm3 MPV 10.9 (9.4-12.3) fl Neut % (Auto) 81.3 H (34.0-67.9) % Lymph % (Auto) 7.4 L (21.8-53.1) % [place] % (Auto) 10.7 (5.3-12.2) % Eos % (Auto) 0.2 L (0.8-7.0) Baso % (Auto) 0.2 (0.1-1.2) % Neut # (Auto) 10.28 H (1.78-5.38) K/mm3 Lymph # (Auto) 0.94 L (1.32-3.57) K/mm3 [place] # (Auto) 1.36 H (0.30-0.82) K/mm3 Eos # (Auto) 0.03 L (0.04-0.54) K/mm3 Baso # (Auto) 0.03 (0.01-0.08) K/mm3 Manual Slide Review Abnormal smear Sodium 141 (136-145) mEq/L Potassium 4.5 (3.5-5.1) mEq/L Chloride 106 (98-107) mEq/L Carbon Dioxide 27 (21-32) mEq/L Anion Gap 12.5 (5-15) BUN 20 H (7-18) mg/dL Creatinine 1.2 (0.7-1.3) mg/dL Est Cr Clr Drug Dosing 53.23 mL/min Estimated GFR (MDRD) 59 (>60) mL/min BUN/Creatinine Ratio 16.7 (14-18) Glucose 94 (83-115) mg/dL Calcium 9.1 (8.5-10.1) mg/dL Magnesium (1.8-2.4) mg/dl Total Bilirubin 0.5 (0.2-1.0) mg/dL AST 28 (15-37) U/L ALT 20 (16-63) U/L Alkaline Phosphatase 99 (46-116) U/L Troponin I < 0.017 (0.00-0.056) ng/mL C-Reactive Protein (<1.0) mg/dL Total Protein 6.5 (6.4-8.2) g/dl Albumin 3.4 (3.4-5.0) g/dl Globulin 3.1 gm/dL Albumin/Globulin Ratio 1.1 (1-2) Urine Color Yellow (Yellow) Urine Appearance Clear (Clear) Urine pH 5.5 (5.0-8.0) Ur Specific [place] 1.025 (1.005-1.030) Urine Protein Trace H (Negative) Urine Glucose (UA) Negative (Negative) Urine Ketones 2+ H (Negative) Urine Occult Blood Negative (Negative) Urine Nitrite Negative (Negative) Urine Bilirubin 1+ H (Negative) Urine Urobilinogen 0.2 (0.2-1.0) Ur Leukocyte Esterase Negative (Negative) Urine RBC 0-5 (0-5) /hpf Urine WBC 0-5 (0-5) /hpf Ur Epithelial Cells 0-5 (0-5) /hpf Calcium Oxalate Crystal Few H (NONE) Urine Bacteria Few (FEW) /hpf Urine Mucus Not seen (FEW) /hpf 02/17/19 02/17/19 Range/Units 05:42 05:42 WBC 7.46 (4.23-9.07) K/mm3 RBC 4.78 (4.63-6.08) M/mm3 Hgb 14.9 (13.7-17.5) gm/L Hct 44.0 (40.1-51.0) % MCV 92.1 (79.0-92.2) fl MCH 31.2 (25.7-32.2) pg MCHC 33.9 (32.2-35.5) g/dl RDW Std Deviation 40.9 (35.1-43.9) fL Plt Count 213 (163-337) K/mm3 MPV 11.4 (9.4-12.3) fl Neut % (Auto) 65.9 (34.0-67.9) % Lymph % (Auto) 14.2 L (21.8-53.1) % [place] % (Auto) 14.9 H (5.3-12.2) % Eos % (Auto) 4.2 (0.8-7.0) Baso % (Auto) 0.7 (0.1-1.2) % Neut # (Auto) 4.92 (1.78-5.38) K/mm3 Lymph # (Auto) 1.06 L (1.32-3.57) K/mm3 [place] # (Auto) 1.11 H (0.30-0.82) K/mm3 Eos # (Auto) 0.31 (0.04-0.54) K/mm3 Baso # (Auto) 0.05 (0.01-0.08) K/mm3 Manual Slide Review Sodium 142 (136-145) mEq/L Potassium 4.3 (3.5-5.1) mEq/L Chloride 106 (98-107) mEq/L Carbon Dioxide 26 (21-32) mEq/L Anion Gap 14.3 (5-15) BUN 18 (7-18) mg/dL Creatinine 1.1 (0.7-1.3) mg/dL Est Cr Clr Drug Dosing 58.07 mL/min Estimated GFR (MDRD) > 60 (>60) mL/min BUN/Creatinine Ratio 16.4 (14-18) Glucose 105 (83-115) mg/dL Calcium 8.6 (8.5-10.1) mg/dL Magnesium 2.1 (1.8-2.4) mg/dl Total Bilirubin 0.8 (0.2-1.0) mg/dL AST 30 (15-37) U/L ALT 24 (16-63) U/L Alkaline Phosphatase 93 (46-116) U/L Troponin I (0.00-0.056) ng/mL C-Reactive Protein 4.0 H* (<1.0) mg/dL Total Protein 6.1 L (6.4-8.2) g/dl Albumin 3.0 L (3.4-5.0) g/dl Globulin 3.1 gm/dL Albumin/Globulin Ratio 1.0 (1-2) Urine Color (Yellow) Urine Appearance (Clear) Urine pH (5.0-8.0) Ur Specific [place] (1.005-1.030) Urine Protein (Negative) Urine Glucose (UA) (Negative) Urine Ketones (Negative) Urine Occult Blood (Negative) Urine Nitrite (Negative) Urine Bilirubin (Negative) Urine Urobilinogen (0.2-1.0) Ur Leukocyte Esterase (Negative) Urine RBC (0-5) /hpf Urine WBC (0-5) /hpf Ur Epithelial Cells (0-5) /hpf Calcium Oxalate Crystal (NONE) Urine Bacteria (FEW) /hpf Urine Mucus (FEW) /hpf Med Orders - Current: Current Medications Acetaminophen (Tylenol) 650 mg PO Q4H PRN PRN Reason: Pain (Mild 1-3)/fever Carbidopa/Levodopa (Sinemet Cr 25-100 Mg) 2 tab PO DAILY [facility] Last Admin: 02/17/19 08:36 Dose: Not Given Enoxaparin Sodium (Lovenox) 40 mg SUBCUT DAILY [facility] Last Admin: 02/17/19 08:09 Dose: Not Given Levothyroxine Sodium (Synthroid) 50 mcg PO ACBRK [facility] Last Admin: 02/17/19 06:07 Dose: 50 mcg Midodrine (Midodrine) 2.5 mg PO TIDAC [facility] Last Admin: 02/17/19 10:56 Dose: 2.5 mg Ondansetron HCl (Zofran) 4 mg IV Q4H PRN PRN Reason: Nausea/Vomiting Potassium Chloride (Klor-Con M20) 20 meq PO DAILY [facility] Last Admin: 02/17/19 08:36 Dose: Not Given Sodium Chloride (Saline Flush) 10 ml FLUSH ASDIRECTED PRN PRN Reason: Keep Vein Open Last Admin: 02/16/19 13:42 Dose: 10 ml Venlafaxine HCl (Effexor Xr) 150 mg PO DAILY [facility] Last Admin: 02/17/19 08:36 Dose: Not Given Discontinued Medications Hydralazine HCl (Apresoline) 10 mg IVPUSH Q4H PRN PRN Reason: Hypertension Sodium Chloride (Normal Saline) 1,000 mls @ 125 mls/hr IV ASDIRECTED [facility] Last Infusion: 02/16/19 16:53 Dose: Infused Sodium Chloride (Normal Saline) 500 mls @ 1,000 mls/hr IV .BOLUS ONE Stop: 02/16/19 14:56 Last Admin: 02/16/19 15:20 Dose: Not Given Lidocaine/Epinephrine (Xylocaine 1% With Epinephrine 1:100,000) 20 ml INJECT ONETIME ONE Stop: 02/16/19 11:52 Last Admin: 02/16/19 13:41 Dose: 20 ml Lidocaine/Epinephrine (Xylocaine 1% With Epinephrine 1:100,000) Confirm Administered Dose 20 ml .ROUTE .STK-MED ONE Stop: 02/16/19 12:43 Last Admin: 02/16/19 13:09 Dose: Not Given Lidocaine/Tetracaine (Let Soln) 3 ml TOP ONETIME ONE Stop: 02/16/19 11:51 Last Admin: 02/16/19 12:59 Dose: 3 ml Lisinopril (Prinivil) 20 mg PO BEDTIME [facility] Last Admin: 02/16/19 22:35 Dose: 20 mg Midodrine (Midodrine) 5 mg PO ONETIME ONE Stop: 02/16/19 14:28 Last Admin: 02/16/19 14:35 Dose: 5 mg Midodrine (Midodrine) 5 mg PO TID [facility] Last Admin: 02/17/19 08:36 Dose: Not Given - Exam Quality Assessment: No: Supplemental Oxygen General: Alert, Oriented HEENT: Pupils Equal, Pupils Reactive, Mucous Membr. Moist/[place] Neck: Supple Lungs: Clear to Auscultation, Normal Respiratory Effort Cardiovascular: Regular Rate, Regular Rhythm GI/Abdominal Exam: Normal Bowel Sounds, Soft, Non-Tender, No Distention Extremities: Normal Inspection, Normal Range of Motion, Non-Tender, No Pedal Edema Skin: Warm, Dry, Intact Psy/Mental Status: Alert, Normal Affect, Normal Mood - Problem List Review Problem List Initiated/Reviewed/Updated: Yes - My Orders Last 24 Hours: My Active Orders 02/16/19 18:16 Resuscitation Status Routine 02/16/19 19:50 Oxygen Therapy [RC] ASDIRECTED Up With Assistance [RC] BID VTE/DVT Education [RC] DAILY Vital Signs [RC] Q4HR Acetaminophen [Tylenol] 650 mg PO Q4H PRN Ondansetron [Zofran] 4 mg IV Q4H PRN 02/16/19 19:52 OT Evaluation and Treatment [CONS] Routine PT Evaluation and Treatment [CONS] Routine 02/16/19 Dinner Heart Healthy Diet [DIET] 02/17/19 06:00 Levothyroxine [Synthroid] 50 mcg PO ACBRK 02/17/19 09:00 Carbidopa/Levodopa [Sinemet Cr 25-100 mg] 2 tab PO DAILY Enoxaparin [Lovenox] 40 mg SUBCUT DAILY Potassium Chloride [Klor-Con M20] 20 meq PO DAILY Venlafaxine [Effexor XR] 150 mg PO DAILY 02/17/19 09:40 Consult to Speech Language Pathology [PILLOW AGENT Evaluation and Treatment] [CONS] Routine 02/17/19 09:50 Orthostatic Vital Signs [RC] ASDIRECTED 02/17/19 11:00 Midodrine 2.5 mg PO TIDAC 02/17/19 11:32 EEG Awake Drowsy [RC] ROUTINE 02/18/19 05:11 C-REACTIVE PROTEIN [CHEM] AM CBC WITH AUTO DIFF [HEME] AM COMPREHENSIVE METABOLIC PN,CMP [CHEM] AM MAGNESIUM [CHEM] AM - Plan Plan:: Assessment * 78-year-old male with history of Parkinson's disease and orthostatic hypotension admitted for multiple falls and episode of increased tonicity Plan * Observation * EEG today * continue PT and OT * Discussed care with his machining manager and we'll try to decrease his midodrine and stop his lisinopril. We will do orthostatic blood pressures before and after taking the midodrine. * CBC, CMP, C-reactive protein, and magnesium in the morning * Avoid over treating hypertension. Midodrine does increase supine blood pressure. * CODE STATUS: Full code * VTE prophylaxis with Lovenox * It is likely that his falls, rigidity, and orthostatic hypotension is secondary to his Parkinson's disease and the autonomic dysfunction associated. After EEG results are obtained we'll discuss his care with neurology.
[2019-02-18] MEDS: Midodrine 5 MG Tab PO SCH ×3 (06:23→17:12)
[2019-02-18] MEDS: Levothyroxine 50 MCG Tab PO SCH (06:24)
[2019-02-18] MEDS: Enoxaparin 40 MG/0.4 ML Syringe SUBCUT SCH (09:26)
[2019-02-18] MEDS: Potassium Chloride 20 MEQ Tab.ER PO SCH (09:27)
[2019-02-18] MEDS: Carbidopa/Levodopa 25-100 MG Tab.ER PO SCH (09:27)
[2019-02-18] MEDS: Venlafaxine 75 MG Cap.ER PO SCH (09:27)
[2019-02-18 17:12] VITALS: BP 96/49; PULSE 73
--- NOTE | 2019-02-18 17:47 | PCM.DCSUM1 ---
Discharge Summary - Hospital Course HPI Initial Comments: 78-year-old male, here with his son, with history of Parkinson's disease and orthostatic hypotension presented to the [facility] after his fourth fall this morning. On the fourth fall he fell hitting the ground and his glasses causing a laceration over his left eye. Patient was referred to the emergency room secondary to his multiple falls. Over the last 6-8 weeks patient has been experiencing increasing falls. Approximately 2-3 weeks ago he fell hitting the back of his head and developing a laceration. Patient was found to be orthostatic and emergency room physician at the agreement of his engagement liaison, Dr. House, started him on Midrin 5 mg. Patient was seen by Dr. House proximally 2 weeks ago. Patient has not had any falls until this morning. Patient does have difficulty with exact timing of his history. Today when he went to the clinic he had an episode lasting approximately 30 seconds where he became rigid. He was awake but glassy eyed. He has no recollection of the event. Witnesses were his provider as well as multiple nurses. Patient did not have any significant seizure-like activity but did have some tremor. Patient does have Parkinson's disease and is on Sinemet. His son thinks that this is fairly common to some of his episodes. Patient has not been seen by neurology. 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 In the emergency room MRI and CT of his head were performed. No acute findings. Old findings consistent with previous CVA. Diagnosis: Stroke: No - Discharge Data Discharge Date: 02/18/19 Discharge Disposition: Home, Self-Care 01 Condition: Good - Referral to Home Health Date of Face to Face Encounter: 02/18/19 Reason for Homebound Status: Parkinson's disease, gait instability, weakness, syncope and falls. Patient rarely leaves the home also because of his sick . He generally only goes to doctor's appointments. Primary Care Physician: Venecia Craft PA-C Skilled Need: Physical therapy for balance training. Nursing for meds, vital signs, assessment. Occupational therapy for home safety eval. [employer] for assist with ADLs. - Patient Summary/Data Consults: Consultations 02/16/19 19:52 OT Evaluation and Treatment [CONS] Routine PT Evaluation and Treatment [CONS] Routine 02/17/19 09:40 Consult to Speech Language Pathology [ELECTRICAL CHECKOUT MECHANIC Evaluation and Treatment] [CONS] Routine Hospital Course: patient was admitted and we DC'd his lisinopril and decreased his midodrine at the recommendations of his cardiologists. It is likely that patient's orthostatic hypotension is secondary to autonomic dysfunction from his Parkinson 's. Also his tonic episode is likely also secondary to his Parkinson's. patient is at increased risk of falls and must take great precautions when standing and walking. He agrees to use a walker at all times. I discussed this with him and his son and they voice understanding that he needs to be seen by neurology. Neurology in [place] was called and they will call him back to be seen as an outpatient. he will also follow-up with Dr. House on Thursday. EEG: Date of procedure: February 17, 2019. Conclusion: Diffuse slowing of the background is nonspecific and may be seen in the elderly, medication effects as well as other etiologies including dementia and metabolic encephalopathies. Further clinical correlation is advised. - Patient Instructions Diet: Heart Healthy Diet Activity: As Tolerated Driving: Do Not Drive Showering/Bathing: May Shower Other/Special Instructions: Staple removal Thursday or Thursday. - Discharge Plan *PRESCRIPTION DRUG MONITORING PROGRAM REVIEWED*: No *COPY OF PRESCRIPTION DRUG MONITORING REPORT IN PATIENT ART: No Home Medications: Home Meds Omeprazole 20 mg PO BRK 10/17/13 [History] Potassium Chloride 20 meq PO DAILY 10/17/13 [History] Rosuvastatin [Crestor] 20 mg PO BEDTIME 10/17/13 [History] Levothyroxine [Synthroid] 50 mcg PO ACBRK 06/09/14 [History] Nitroglycerin [IJP: Nitroglycerin] 1 tab SL ASDIRECTED PRN 01/22/16 [History] Cholecalciferol (Vitamin D3) [Vitamin D3] 5,000 units PO MOWEFR 11/10/16 [ History] Multivitamin [Multivitamins] 1 tab PO DAILY 11/10/16 [History] Venlafaxine HCl [Venlafaxine HCl ER] 150 mg PO DAILY 11/10/16 [History] Acetaminophen [Tylenol] 500 mg PO Q6HR PRN 09/04/17 [History] Carbidopa/Levodopa [Sinemet CR 50-200] 1 tab PO DAILY 09/04/17 [History] Polyethylene Glycol 3350 [MiraLAX] 17 gram PO BEDTIME 09/04/17 [History] Sennosides [Senna] 8.6 mg PO BID 02/16/19 [History] Midodrine 2.5 mg PO TIDAC tablet 02/18/19 [Rx] Oxygen Therapy Mode: Room Air Patient Handouts: Fall Prevention in the Home, Adult, [id number] Referrals: Ariana Gutierrez MD [Ordering Only Provider] - (Neurologist in [place] at [facility], [place]. They will call you to schedule an appointment. If they do not call you within a couple weeks, call [phone] to request a hospital referral appointment.) Venecia Craft PA-C [Primary Care Provider] - (Please follow-up with Crystal on Thursday or Thursday.) - Discharge Summary/Plan Comment DC Time >30 min.: Yes Discharge Summary/Plan Comment: discharged home with for well walker. Follow-up with cardiology on Thursday. Make new appointment with neurology. Follow-up with PCP for staple removal next week. - General Info Date of Service: 02/18/19 Admission Dx/Problem (Free Text: Admission Diagnosis/Problem Admission Diagnosis/Problem Orthostatic hypotension Subjective Update: patient states he is doing well. He has no complaints. No headache. Nursing still reports a significant drop in systolic blood pressure with standing. Functional Status: Reports: Pain Controlled - Review of Systems General: Reports: No Symptoms HEENT: Reports: No Symptoms Pulmonary: Reports: No Symptoms Cardiovascular: Reports: No Symptoms Neurological: Reports: No Symptoms - Patient Data Vitals - Most Recent: Last Vital Signs Temp 98.1 F 02/18/19 17:04 Pulse 73 02/18/19 17:04 Resp 12 02/18/19 17:04 BP 96/49 L 02/18/19 17:07 Pulse Ox 94 L 02/18/19 17:04 Orthostatic Blood Pressure [ 93/47 Standing] Orthostatic Blood Pressure [ 144/88 Sitting] Orthostatic Blood Pressure [ 167/92 Supine] Weight - Most Recent: 166 lb I&O - Last 24 hours: Intake & Output 02/18/19 02/18/19 02/18/19 06:59 14:59 22:59 Intake Total 350 240 740 Output Total 575 200 Balance -225 240 540 Lab Results - Last 24 hrs: Laboratory Results - last 24 hr 02/18/19 02/18/19 Range/Units 05:18 05:18 WBC 7.09 (4.23-9.07) K/mm3 RBC 4.72 (4.63-6.08) M/mm3 Hgb 14.7 (13.7-17.5) gm/L Hct 43.7 (40.1-51.0) % MCV 92.6 H (79.0-92.2) fl MCH 31.1 (25.7-32.2) pg MCHC 33.6 (32.2-35.5) g/dl RDW Std Deviation 41.9 (35.1-43.9) fL Plt Count 191 (163-337) K/mm3 MPV 11.3 (9.4-12.3) fl Neut % (Auto) 63.8 (34.0-67.9) % Lymph % (Auto) 16.5 L (21.8-53.1) % [place] % (Auto) 14.5 H (5.3-12.2) % Eos % (Auto) 4.8 (0.8-7.0) Baso % (Auto) 0.4 (0.1-1.2) % Neut # (Auto) 4.52 (1.78-5.38) K/mm3 Lymph # (Auto) 1.17 L (1.32-3.57) K/mm3 [place] # (Auto) 1.03 H (0.30-0.82) K/mm3 Eos # (Auto) 0.34 (0.04-0.54) K/mm3 Baso # (Auto) 0.03 (0.01-0.08) K/mm3 Sodium 142 (136-145) mEq/L Potassium 4.0 (3.5-5.1) mEq/L Chloride 107 (98-107) mEq/L Carbon Dioxide 25 (21-32) mEq/L Anion Gap 14.0 (5-15) BUN 18 (7-18) mg/dL Creatinine 1.0 (0.7-1.3) mg/dL Est Cr Clr Drug Dosing 63.88 mL/min Estimated GFR (MDRD) > 60 (>60) mL/min BUN/Creatinine Ratio 18.0 (14-18) Glucose 88 (83-115) mg/dL Calcium 8.4 L (8.5-10.1) mg/dL Magnesium 2.1 (1.8-2.4) mg/dl Total Bilirubin 0.7 (0.2-1.0) mg/dL AST 33 (15-37) U/L ALT 25 (16-63) U/L Alkaline Phosphatase 86 (46-116) U/L C-Reactive Protein 5.1 H* (<1.0) mg/dL Total Protein 6.1 L (6.4-8.2) g/dl Albumin 2.9 L (3.4-5.0) g/dl Globulin 3.2 gm/dL Albumin/Globulin Ratio 0.9 L (1-2) Med Orders - Current: Current Medications Acetaminophen (Tylenol) 650 mg PO Q4H PRN PRN Reason: Pain (Mild 1-3)/fever Carbidopa/Levodopa (Sinemet Cr 25-100 Mg) 2 tab PO DAILY [facility] Last Admin: 02/18/19 09:27 Dose: 2 tab Enoxaparin Sodium (Lovenox) 40 mg SUBCUT DAILY [facility] Last Admin: 02/18/19 09:26 Dose: 40 mg Levothyroxine Sodium (Synthroid) 50 mcg PO ACBRK [facility] Last Admin: 02/18/19 06:24 Dose: 50 mcg Midodrine (Midodrine) 2.5 mg PO TIDAC [facility] Last Admin: 02/18/19 17:12 Dose: 2.5 mg Ondansetron HCl (Zofran) 4 mg IV Q4H PRN PRN Reason: Nausea/Vomiting Potassium Chloride (Klor-Con M20) 20 meq PO DAILY [facility] Last Admin: 02/18/19 09:27 Dose: 20 meq Sodium Chloride (Saline Flush) 10 ml FLUSH ASDIRECTED PRN PRN Reason: Keep Vein Open Last Admin: 02/16/19 13:42 Dose: 10 ml Venlafaxine HCl (Effexor Xr) 150 mg PO DAILY [facility] Last Admin: 02/18/19 09:27 Dose: 150 mg Discontinued Medications Hydralazine HCl (Apresoline) 10 mg IVPUSH Q4H PRN PRN Reason: Hypertension Sodium Chloride (Normal Saline) 1,000 mls @ 125 mls/hr IV ASDIRECTED [facility] Last Infusion: 02/16/19 16:53 Dose: Infused Sodium Chloride (Normal Saline) 500 mls @ 1,000 mls/hr IV .BOLUS ONE Stop: 02/16/19 14:56 Last Admin: 02/16/19 15:20 Dose: Not Given Lidocaine/Epinephrine (Xylocaine 1% With Epinephrine 1:100,000) 20 ml INJECT ONETIME ONE Stop: 02/16/19 11:52 Last Admin: 02/16/19 13:41 Dose: 20 ml Lidocaine/Epinephrine (Xylocaine 1% With Epinephrine 1:100,000) Confirm Administered Dose 20 ml .ROUTE .STK-MED ONE Stop: 02/16/19 12:43 Last Admin: 02/16/19 13:09 Dose: Not Given Lidocaine/Tetracaine (Let Soln) 3 ml TOP ONETIME ONE Stop: 02/16/19 11:51 Last Admin: 02/16/19 12:59 Dose: 3 ml Lisinopril (Prinivil) 20 mg PO BEDTIME [facility] Last Admin: 02/16/19 22:35 Dose: 20 mg Midodrine (Midodrine) 5 mg PO ONETIME ONE Stop: 02/16/19 14:28 Last Admin: 02/16/19 14:35 Dose: 5 mg Midodrine (Midodrine) 5 mg PO TID [facility] Last Admin: 02/17/19 08:36 Dose: Not Given - Exam Quality Assessment: Denies: Supplemental Oxygen General: Reports: Alert, Oriented HEENT: Reports: Pupils Equal, Mucous Membr. Moist/[place], Other (well-healing laceration over left eye) Neck: Reports: Supple Lungs: Reports: Clear to Auscultation, Normal Respiratory Effort Cardiovascular: Reports: Regular Rate, Regular Rhythm GI/Abdominal Exam: Normal Bowel Sounds, Soft, Non-Tender, No Organomegaly, No Distention, No Abnormal Bruit, No Mass Extremities: Normal Inspection Skin: Reports: Warm, Dry, Intact Wound/Incisions: Reports: Healing Well Psy/Mental Status: Reports: Alert, Normal Affect, Normal Mood
--- NOTE | 2019-02-21 06:39 | MR ---
MRI brain Technique: T1 sagittal; T2, T2 FLAIR, T1, T2 gradient echo and diffusion axial; T1 coronal and T2 gradient echo coronal images were obtained of the brain. Comparison: Prior head CT study performed earlier on same day (12:23 PM) Findings: Ventricles along with basal cisterns and sulci over the convexities are mildly prominent. Encephalomalacia is identified within right temporal lobe extending into the right occipital lobe. Low signal course calcification is seen within this region. Findings have the appearance of an old infarct. Mild areas of increased signal are noted within the periventricular white matter compatible with minimal small vessel ischemic demyelination change. No other areas of abnormal signal are seen within the brain parenchyma. No midline shift or mass effect is seen. No acute diffusion abnormalities are seen. Impression: 1. Old infarct with dystrophic calcification within the right temporal and occipital lobe. 2. Mild senescent change as noted above. 3. No acute diffusion abnormalities are identified. Diagnostic code #2 I agree with preliminary report from [facility], finalized on 02/16/19, 4:47 PM Central Time
--- NOTE | 2019-02-21 06:40 | CT ---
Head CT Technique: Multiple axial sections through the brain were obtained. Intravenous contrast was not utilized. Comparison: No prior intracranial imaging is available. Findings: Low density area is seen within the right temporal lobe and extending into the right occipital lobe. There is a fairly prominent central calcification being seen. There is ex vacuole enlargement of the posterior horn of the lateral ventricle and ex vacuole enlargement of the temporal horn of the lateral ventricle. Findings are felt compatible with old infarct with dystrophic calcification. Ventricles along with basal cisterns and sulci over the convexities are otherwise mildly prominent. Mild diminished density is noted within the periventricular white matter which is most likely due to small vessel ischemic demyelination change. No other abnormal parenchymal densities are seen. No acute intracranial hemorrhage is seen. Bone window settings were reviewed which show no acute calvarial abnormality. Visualized mastoid sinuses and paranasal sinuses are clear. Impression: 1. Old infarct with presumed dystrophic calcification as noted above. 2. Other senescent change. 3. No acute intracranial abnormality is appreciated. Diagnostic code #3 I agree with preliminary report from [facility], finalized on 02/16/19, 1:38 PM Central Time
== END 2019-02-18 18:18 | disposition home or self-care (01) | DRG 56 ==
LOC: JD.ED 10:58 → JD.MS 17:05 → OBSVTOIN 02-17 12:54
PROVIDERS: ADMIT Family Medicine; ATTEND Family Medicine
DX: G20 Parkinson's disease (principal); R41.82 Altered mental status, unspecified; G93.41 Metabolic encephalopathy; G93.89 Other specified disorders of brain; S01.112A Laceration without foreign body of left eyelid and periocular area, initial encounter; I95.1 Orthostatic hypotension; H40.9 Unspecified glaucoma; I25.10 Atherosclerotic heart disease of native coronary artery without angina pectoris; E78.00 Pure hypercholesterolemia, unspecified; F45.8 Other somatoform disorders; I10 Essential (primary) hypertension; Z79.82 Long term (current) use of aspirin; K21.9 Gastro-esophageal reflux disease without esophagitis; M54.9 Dorsalgia, unspecified; Z95.5 Presence of coronary angioplasty implant and graft; Z87.891 Personal history of nicotine dependence; W18.30XA Fall on same level, unspecified, initial encounter; G89.29 Other chronic pain; W18.39XA Other fall on same level, initial encounter; R29.6 Repeated falls; M19.90 Unspecified osteoarthritis, unspecified site; F41.9 Anxiety disorder, unspecified; F32.9 Major depressive disorder, single episode, unspecified; E03.9 Hypothyroidism, unspecified; W22.8XXA Striking against or struck by other objects, initial encounter; Z85.46 Personal history of malignant neoplasm of prostate; Z87.442 Personal history of urinary calculi; Z88.8 Allergy status to other drugs, medicaments and biological substances; Z90.89 Acquired absence of other organs; Z79.899 Other long term (current) drug therapy; Y93.89 Activity, other specified; Y92.89 Other specified places as the place of occurrence of the external cause; Z91.81 History of falling; Z98.890 Other specified postprocedural states; Z90.79 Acquired absence of other genital organ(s); Z95.818 Presence of other cardiac implants and grafts; Z86.73 Personal history of transient ischemic attack (TIA), and cerebral infarction without residual deficits; Z88.1 Allergy status to other antibiotic agents
CPT/HCPCS: 12011; 36415 ×2; 70450; 70551; 80053 ×2; 81001; 83735; 84484; 85025 ×2; 86140; 93005; 95816; 96360; 96361; 96372; 97116; 97161; 97165; 97530; 99285; A9270 ×9; G0378 ×2; J1650; J7040; 93010; 96125-GN; 99283